=== PATIENT | male | born 1970 | race Caucasian/White ===

== ENCOUNTER 2021-04-30 09:34 | Emergency (ER) | payer OTHER ==
[2021-04-30 10:24] LABS: EOSINOPHIL 1.5 % (0-5); HCT 45.6 % (42.0-52.0); HGB 16.6 g/dl (13.2-18.0); LYMPHOCYTE 19.5 % (15-48); MCH 36.8 pg (25.0-31.0); MCHC 36.4 g/dL (32.0-36.0); MCV 101.1 fL (78.0-100.0); MONOCYTE 11.6 % (0-12); MPV 9.5 fL (6.0-9.5); NEUTROPHIL 66.2 % (41-80); NRBC 0; PLT 206 K/uL (150-400); RBC 4.51 M/uL (4.70-6.00); RDW 12.2 % (11.5-14.0); WBC 6.1 K/uL (4.0-10.5)
[2021-04-30 11:04] LABS: ALBUMIN 4.5 g/dL (3.4-5.0); BILIRUBIN - TOTAL 2.5 mg/dL (0.2-1.0); BUN/CREAT RATIO (CALC) 9.8 RATIO; CREATININE 0.82 mg/dL (0.67-1.17); GLOBULIN (CALCULATION) 3.8 g/dL; MAGNESIUM 2.2 mg/dL (1.8-2.4); PHOSPHORUS 3.2 mg/dL (2.6-4.7); POTASSIUM 3.9 mmol/L (3.5-5.1); TOTAL PROTEIN 8.3 g/dL (6.4-8.2)
[2021-04-30 11:55] LABS: BILIRUBIN NEGATIVE (NEGATIVE); BLOOD NEGATIVE Ery/uL (NEGATIVE); CLARITY CLEAR (CLEAR); COLOR YELLOW (YELLOW); GLUCOSE (U) NORMAL (NORMAL); LEUKOCYTES NEGATIVE Leu/uL (NEGATIVE); NITRITE NEGATIVE (NEGATIVE); PROTEIN TRACE (LOW) mg/dL (NEGATIVE); SPECIFIC GRAVITY <=1.005 (1.001-1.030); UROBILINOGEN 0.2 mg/dL (0.2-1.0); pH 6.5 (5.0-9.0)
[2021-04-30 12:03] LABS: SQUAMOUS EPITHELIAL CELLS RARE; URINARY RBC RARE; URINARY WBC RARE
== END 2021-04-30 11:53 | disposition home or self-care (01) ==
LOC: FER 09:34
PROVIDERS: Emergency Medicine
DX: E86.0 Dehydration (principal); F17.210 Nicotine dependence, cigarettes, uncomplicated
CPT/HCPCS: 36415; 80053; 81001; 82550; 83735; 84100; 85025; J2405; J7030